=== PATIENT | male | born 1960 | race Hispanic/Latino ===

== ENCOUNTER 2017-12-20 18:09 | Inpatient (IN) | payer OTHER ==
--- NOTE | 2017-12-20 19:15 | ED PDOC ---
HPI: Chest Pain Time Seen by Provider: 12/20/17 18:15 Chief Complaint (Nursing): Chest Pain Chief Complaint (Provider): Chest Pain History Per: Patient History/Exam Limitations: no limitations Onset/Duration Of Symptoms: Hrs (x1 hour) Current Symptoms Are (Timing): Still Present Additional Complaint(s): 57 y/o male with past medical history of cardiac stent (6 years ago) presents to the ED with mid sternal chest pain that started in bus about an hour ago. Denies fever, chills, cough or any further medical complaints. Past Medical History Reviewed: Historical Data, Nursing Documentation, Vital Signs Vital Signs: Last Vital Signs Temp 97.8 F 12/22/17 07:40 Pulse 75 12/22/17 07:40 Resp 18 12/22/17 07:40 BP 148/88 12/22/17 07:40 Pulse Ox 97 12/22/17 07:40 - Medical History PMH: HTN, Hyperlipidemia - Surgical History Surgical History: Coronary Stent - Family History Family History: States: Unknown Family Hx - Social History Current smoker - smoking cessation education provided: Yes (Heavy smoker> 10 cigarettes daily) Alcohol: None Drugs: Denies - Home Medications Home Medications: Ambulatory Orders Medication Instructions Recorded Aspirin [Ecotrin] 81 mg PO DAILY 12/20/17 Losartan Potassium [Cozaar] 100 mg PO DAILY 12/20/17 Metoprolol [Lopressor] 5 mg PO DAILY 12/20/17 Prasugrel Hydrochloride [Effient] 5 mg PO DAILY 12/20/17 amLODIPine [Norvasc] 5 mg PO DAILY 12/20/17 - Allergies Allergies/Adverse Reactions: Allergies Allergy/AdvReac Type Severity Reaction Status Date / Time No Known Allergies Allergy Verified 12/20/17 18:09 CESAR Risk Score for UA/NSTEMI - CESAR Risk Score Age > 64: NO 3 or more CAD Risk Factors: YES Known CAD (Stenosis greater than 50%): YES Aspirin use in past 7 days: NO Severe Angina: NO EKG ST changes greater than 0.5mm: NO Positive Cardiac Marker: NO CESAR Score: 2 Risk %: 8% Review of Systems ROS Statement: Except As Marked, All Systems Reviewed And Found Negative (As per HPI, otherwise negative) Constitutional: Negative for: Fever, Chills Cardiovascular: Positive for: Chest Pain (Mid sternal) Respiratory: Negative for: Cough Physical Exam - Reviewed Nursing Documentation Reviewed: Yes Vital Signs Reviewed: Yes - Physical Exam Appears: Positive for: Non-toxic, No Acute Distress Head Exam: Positive for: ATRAUMATIC, NORMAL INSPECTION, NORMOCEPHALIC Skin: Positive for: Normal Color, Warm, Dry Eye Exam: Positive for: EOMI, Normal appearance, PERRL ENT: Positive for: Normal ENT Inspection Neck: Positive for: Normal, Painless ROM, Supple Cardiovascular/Chest: Positive for: Regular Rate, Rhythm. Negative for: Murmur Respiratory: Positive for: Normal Breath Sounds. Negative for: Accessory Muscle Use, Respiratory Distress Gastrointestinal/Abdominal: Positive for: Normal Exam, Soft. Negative for: Tenderness Back: Positive for: Normal Inspection Extremity: Positive for: Normal ROM. Negative for: Deformity Neurologic/Psych: Positive for: Alert, Oriented (x3) - Laboratory Results Result Diagrams: 12/21/17 04:20 12/21/17 04:20 - ECG O2 Sat by Pulse Oximetry: 100 (RA) Pulse Ox Interpretation: Normal Medical Decision Making Medical Decision Making: Time: 18:58 Initial Impression: Chest pain rule out CAD Plan: CMP Troponin I CBC w/ differential PTT Prothrombin time Chest x-ray pvc monitor Reevaluation --Patient will be admitted to in house doctor --Patient will be admitted to Dr. Cleaning- he is aware pt got ASA en route and has no pain at this time. Scribe Attestation: Documented by Jamaal Newby acting as a scribe for Surinder Honeycutt MD. MD Guillaumeibzeke Attestation: All medical record entries made by the Scribe were at my direction and personally dictated by me. I have reviewed the chart and agree that the record accurately reflects my personal performance of the history, physical exam, medical decision making, and the department course for this patient. I have also personally directed, reviewed, and agree with the discharge instructions and disposition. Disposition - Clinical Impression Clinical Impression: Chest pain - Patient ED Disposition Is Patient to be Admitted: Yes - Disposition Disposition Time: 20:20 Condition: STABLE
[2017-12-20 19:36] LABS: BASO % 0.7 % (0.0-2.0); EOS # 0.1 K/uL (0.0-0.7); HEMOGLOBIN 13.8 g/dL (12.0-18.0); LYMPH # 1.1 K/uL (1.0-4.3); LYMPH % 17.9 % (20.0-40.0); MEAN CELL VOLUME 92.4 fl (80.0-94.0); MEAN CORPUSCULAR HEMOGLOBIN 31.4 pg (27.0-31.0); MEAN PLATELET VOLUME 6.9 fl (7.2-11.7); MONO # 0.6 K/uL (0.0-0.8); MONO % 9.7 % (0.0-10.0); NEUT # 4.2 K/uL (1.8-7.0); NEUT % 69.7 % (50.0-75.0); NRBC % 0.1 % (0.0-0.0); RBC 4.4 Mil/uL (4.40-5.90); RED CELL DISTRIBUTION WIDTH 12.7 % (11.5-14.5)
[2017-12-20 19:42] LABS: INR 0.9 (0.9-1.2); PARTIAL THROMBOPLASTIN TIME 32.2 Seconds (25.6-37.1); PROTHROMBIN TIME 10.2 Seconds (9.8-13.1)
[2017-12-20 19:43] LABS: ALB/GLOB RATIO 1.3 (1.0-2.1); ALBUMIN 4.4 g/dL (3.5-5.0); ALT/SGPT 41 U/L (21-72); AST/SGOT 26 U/L (17-59); BLOOD UREA NITROGEN 13 mg/dl (9-20); CALCIUM 9.6 mg/dL (8.4-10.2); GFR AFRICAN-AMERICAN > 60; GFR NON-AFRICAN AMERICAN > 60
[2017-12-21 05:42] LABS: HEMOGLOBIN 13.5 g/dL (12.0-18.0); MEAN CELL VOLUME 91.6 fl (80.0-94.0); MEAN CORPUSCULAR HEMOGLOBIN 31.3 pg (27.0-31.0); MEAN CORPUSCULAR HGB CONC 34.1 g/dL (33.0-37.0); RBC 4.31 Mil/uL (4.40-5.90); RED CELL DISTRIBUTION WIDTH 12.7 % (11.5-14.5); WHITE BLOOD COUNT 5.5 K/uL (4.8-10.8)
[2017-12-21] MEDS ORDERED: Pneumococcal 23-Valent Vaccine IM ONE (06:00)
[2017-12-21 06:05] LABS: ALB/GLOB RATIO 1.3 (1.0-2.1); ALBUMIN 3.8 g/dL (3.5-5.0); ALT/SGPT 38 U/L (21-72); AST/SGOT 37 U/L (17-59); BLOOD UREA NITROGEN 13 mg/dl (9-20); CALCIUM 9.5 mg/dL (8.4-10.2); GFR AFRICAN-AMERICAN > 60; GFR NON-AFRICAN AMERICAN > 60; HDL CHOLESTEROL 36 MG/DL (30-70); URIC ACID 4.6 mg/Dl (3.5-8.5)
[2017-12-21 06:06] LABS: LDL CHOLESTEROL 169 mg/dL (0-129)
--- NOTE | 2017-12-21 08:27 | RAD ---
HISTORY: chest pain COMPARISON: No prior. FINDINGS: LUNGS: No active pulmonary disease. PLEURA: No significant pleural effusion identified, no pneumothorax apparent. CARDIOVASCULAR: Coronary artery stents are suggested with technical magnification enlarging the heart versus potential limited cardiomegaly. No pulmonary vascular derangement appreciable. OSSEOUS STRUCTURES: No significant abnormalities. VISUALIZED UPPER ABDOMEN: Normal. OTHER FINDINGS: None. IMPRESSION: No acute pulmonary disease. Questionable cardiomegaly. No pulmonary vascular derangement.
[2017-12-21] MEDS: Enoxaparin 40 mg Syringe SC SCH (08:55)
[2017-12-21] MEDS: Pantoprazole 40 mg EC Tab PO SCH (08:56)
[2017-12-21] MEDS ORDERED: PRASUGREL HYDROCHLORIDE PO SCH (09:00)
--- NOTE | 2017-12-21 09:17 | CARD ---
APPROVED REPORT EKG Measurement Heart [id number] ID [id number] <Conclusion> Normal sinus rhythm Inferior infarct, age undetermined Abnormal ECG
--- NOTE | 2017-12-21 12:21 | CARD ---
APPROVED REPORT EKG Measurement Heart [id number] MT [id number] <Conclusion> Normal sinus rhythm Possible Left atrial enlargement Borderline ECG
--- NOTE | 2017-12-21 13:58 | CARD ---
APPROVED REPORT EXAM: Two-dimensional and M-mode echocardiogram with Doppler and color Doppler. Other Information Quality : GoodRhythm : NSR INDICATION Chest Pain Surgery/Intervention Status/Post Intervention: Stent 2D DIMENSIONS IVSd1.30 (0.7-1.1cm)LVDd3.59 (3.9-5.9cm) LVOT Diameter1.94 (1.8-2.4cm)PWd1.28 (0.7-1.1cm) IVSs1.22 (0.8-1.2cm)LVDs2.62 (2.5-4.0cm) FS (%) 26.9 %PWs1.21 (0.8-1.2cm) M-Mode DIMENSIONS Left Atrium (MM)3.53 (2.5-4.0cm)IVSd1.12 (0.7-1.1cm) Aortic Root3.38 (2.2-3.7cm)LVDd4.38 (4.0-5.6cm) Aortic Cusp Exc.1.91 (1.5-2.0cm)PWd1.09 (0.7-1.1cm) IVSs1.47 cmFS (%) 52 % LVDs2.09 (2.0-3.8cm)PWs1.56 cm Mitral Valve MV E Tovgaprq35.6cm/sMV DECEL [id number] A Okjmrvbc19.1cm/s MV [id number]/A ratio1.1MVA (PHT)4.02cm2 TDI Lateral E' Peak V12.06cm/sMedial E' Peak V8.80cm/sE/Lateral E'7.7 E/Medial E'10.5 Pulmonary Valve PV Peak Nyuebuab07.0cm/s LEFT VENTRICLE The left ventricle is normal size. There is normal left ventricular wall thickness. Left ventricle systolic function is normal. The Ejection Fraction is 60-65%. There is normal LV segmental wall motion. Transmitral Doppler flow pattern is Grade I-abnormal relaxation pattern. RIGHT VENTRICLE The right ventricle is normal size. There is normal right ventricular wall thickness. The right ventricular systolic function is normal. ATRIA The left atrium size is normal. The right atrium size is normal. AORTIC VALVE The aortic valve is normal in structure. No aortic regurgitation is present. There is no aortic valvular stenosis. MITRAL VALVE The mitral valve is normal in structure. There is no evidence of mitral valve prolapse. There is no mitral valve stenosis. There is no mitral valve regurgitation noted. TRICUSPID VALVE The tricuspid valve is normal in structure. There is no tricuspid valve regurgitation noted. PULMONIC VALVE The pulmonary valve is normal in structure. There is no pulmonic valvular regurgitation. GREAT VESSELS The aortic root is normal in size. The IVC is normal in size and collapses >50% with inspiration. PERICARDIAL EFFUSION The pericardium appears normal. <Conclusion> The left ventricle is normal size. There is normal left ventricular wall thickness. There is normal LV segmental wall motion. Left ventricle systolic function is normal. The Ejection Fraction is 60-65%. Transmitral Doppler flow pattern is Grade I-abnormal relaxation pattern.
--- NOTE | 2017-12-21 14:01 | CP.PCM.HP ---
<Gael Garcia - Last Filed: 12/21/17 13:54> History of Present Illness - History of Present Illness History of Present Illness: CC: chest pain HPI: 57 y/o man w/ pmh of CAD s/p cardiac x6 stent (last was 6 years ago), HTN , DM2, HLD presents to the ED with mid sternal chest pain. Patient reports mid- sternal chest pain that started while he was in the bus yesterday morning. Patient reports sharp, non-radiating pain. The patient reports he has had stents placed multiple times with the most recent being 6 years ago. The patient denies fever, chills, cough, headaches, dizziness, SOB, abdominal pain, nasuea, vomiting, diarrhea, or dysuria. PMD: none PMH: CAD s/p cardiac x6 stent (last was 6 years ago), HTN, DM2, HLD meds: see med list PSH: left knee surgery Fam: denies SOC: current smoker, denies alcohol and illegal drugs ROS: 12 points assessed an negative unless otherwise reported in HPI Present on Admission - Present on Admission Any Indicators Present on Admission: Yes History of DVT/PE: No History of Uncontrolled Diabetes: Yes Urinary Catheter: No Decubitus Ulcer Present: No Review of Systems - Review of Systems All systems: reviewed and no additional remarkable complaints except - Constitutional Constitutional: absent: Chills, Fever - EENT Eyes: absent: Change in Vision - Cardiovascular Cardiovascular: As Per HPI, Chest Pain. absent: Leg Edema, Lightheadedness, Palpitations - Respiratory Respiratory: absent: Cough, Dyspnea - Gastrointestinal Gastrointestinal: absent: Abdominal Pain, Diarrhea, Nausea, Vomiting - Genitourinary Genitourinary: absent: Dysuria - Integumentary Integumentary: absent: Rash - Neurological Neurological: absent: Dizziness, Headaches Past Patient History - Past Medical History & Family History Past Medical History?: Yes - Past Social History Smoking Status: Former Smoker - CARDIAC Hx Cardiac Disorders: Yes - ENDOCRINE/METABOLIC Hx Endocrine Disorders: Yes - MUSCULOSKELETAL/RHEUMATOLOGICAL Hx Falls: No - PSYCHIATRIC Hx Substance Use: No - SURGICAL HISTORY Hx Coronary Stent: Yes - ANESTHESIA Hx Anesthesia: Yes Hx Anesthesia Reactions: No Meds Allergies/Adverse Reactions: Allergies Allergy/AdvReac Type Severity Reaction Status Date / Time No Known Allergies Allergy Verified 12/20/17 18:09 Physical Exam - Constitutional Appears: Non-toxic, No Acute Distress - Head Exam Head Exam: ATRAUMATIC, NORMAL INSPECTION, NORMOCEPHALIC - Eye Exam Eye Exam: Normal appearance - ENT Exam ENT Exam: Mucous Membranes Moist - Neck Exam Neck exam: Positive for: Full Rom. Negative for: Tenderness - Respiratory Exam Respiratory Exam: Clear to Auscultation Bilateral. absent: Accessory Muscle Use , Decreased Breath Sounds, Rales, Rhonchi, Wheezes, Respiratory Distress - Cardiovascular Exam Cardiovascular Exam: REGULAR RHYTHM. absent: Tachycardia - GI/Abdominal Exam GI & Abdominal Exam: Normal Bowel Sounds, Soft. absent: Distended, Tenderness - Extremities Exam Extremities exam: Negative for: calf tenderness, pedal edema, tenderness - Neurological Exam Neurological exam: Alert, Oriented x3 - Skin Skin Exam: Dry, Intact, Normal Color, Warm Results - Vital Signs Recent Vital Signs: Last Vital Signs Temp 98.5 F 12/21/17 11:59 Pulse 82 12/21/17 11:59 Resp 18 12/21/17 11:59 BP 130/86 12/21/17 11:59 Pulse Ox 98 12/21/17 11:59 - Labs Result Diagrams: 12/21/17 04:20 12/21/17 04:20 Labs: Laboratory Results - last 24 hr 12/20/17 12/20/17 12/20/17 19:25 19:25 19:25 WBC 6.0 RBC 4.40 Hgb 13.8 Hct 40.6 MCV 92.4 MCH 31.4 H MCHC 34.0 RDW 12.7 Plt Count 211 MPV 6.9 L Neut % (Auto) 69.7 Lymph % (Auto) 17.9 L [place] % (Auto) 9.7 Eos % (Auto) 2.0 Baso % (Auto) 0.7 Neut # (Auto) 4.2 Lymph # (Auto) 1.1 [place] # (Auto) 0.6 Eos # (Auto) 0.1 Baso # (Auto) 0.0 PT 10.2 INR 0.9 APTT 32.2 Sodium 138 Potassium 4.0 Chloride 97 L Carbon Dioxide 24 Anion Gap 21 H BUN 13 Creatinine 0.7 L Est GFR ( Amer) > 60 Est GFR (Non-Af Amer) > 60 POC Glucose (mg/dL) Random Glucose 260 H Hemoglobin A1c Uric Acid Calcium 9.6 Total Bilirubin 0.5 AST 26 ALT 41 Alkaline Phosphatase 87 Troponin I < 0.0120 Total Protein 7.6 Albumin 4.4 Globulin 3.3 Albumin/Globulin Ratio 1.3 Triglycerides Cholesterol LDL Cholesterol Direct HDL Cholesterol TSH 3rd Generation 12/21/17 12/21/17 12/21/17 00:55 04:20 04:20 WBC 5.5 RBC 4.31 L Hgb 13.5 Hct 39.5 MCV 91.6 MCH 31.3 H MCHC 34.1 RDW 12.7 Plt Count 201 MPV Neut % (Auto) Lymph % (Auto) [place] % (Auto) Eos % (Auto) Baso % (Auto) Neut # (Auto) Lymph # (Auto) [place] # (Auto) Eos # (Auto) Baso # (Auto) PT INR APTT Sodium 142 Potassium 4.0 Chloride 101 Carbon Dioxide 27 Anion Gap 18 BUN 13 Creatinine 0.7 L Est GFR ( Amer) > 60 Est GFR (Non-Af Amer) > 60 POC Glucose (mg/dL) Random Glucose 224 H Hemoglobin A1c Uric Acid 4.6 Calcium 9.5 Total Bilirubin 0.5 AST 37 ALT 38 Alkaline Phosphatase 75 Troponin I < 0.0120 Total Protein 6.7 Albumin 3.8 Globulin 2.9 Albumin/Globulin Ratio 1.3 Triglycerides 336 H Cholesterol 254 H LDL Cholesterol Direct 169 H HDL Cholesterol 36 TSH 3rd Generation 1.96 12/21/17 12/21/17 12/21/17 04:20 05:17 07:51 WBC RBC Hgb Hct MCV MCH MCHC RDW Plt Count MPV Neut % (Auto) Lymph % (Auto) [place] % (Auto) Eos % (Auto) Baso % (Auto) Neut # (Auto) Lymph # (Auto) [place] # (Auto) Eos # (Auto) Baso # (Auto) PT INR APTT Sodium Potassium Chloride Carbon Dioxide Anion Gap BUN Creatinine Est GFR ( Amer) Est GFR (Non-Af Amer) POC Glucose (mg/dL) 204 H Random Glucose Hemoglobin A1c 11.1 H Uric Acid Calcium Total Bilirubin AST ALT Alkaline Phosphatase Troponin I < 0.0120 Total Protein Albumin Globulin Albumin/Globulin Ratio Triglycerides Cholesterol LDL Cholesterol Direct HDL Cholesterol TSH 3rd Generation 12/21/17 10:28 WBC RBC Hgb Hct MCV MCH MCHC RDW Plt Count MPV Neut % (Auto) Lymph % (Auto) [place] % (Auto) Eos % (Auto) Baso % (Auto) Neut # (Auto) Lymph # (Auto) [place] # (Auto) Eos # (Auto) Baso # (Auto) PT INR APTT Sodium Potassium Chloride Carbon Dioxide Anion Gap BUN Creatinine Est GFR ( Amer) Est GFR (Non-Af Amer) POC Glucose (mg/dL) 321 H Random Glucose Hemoglobin A1c Uric Acid Calcium Total Bilirubin AST ALT Alkaline Phosphatase Troponin I Total Protein Albumin Globulin Albumin/Globulin Ratio Triglycerides Cholesterol LDL Cholesterol Direct HDL Cholesterol TSH 3rd Generation Assessment & Plan (1) Chest pain Status: Acute (2) Hx of heart artery stent Status: Chronic (3) Uncontrolled diabetes mellitus Status: Chronic (4) HTN (hypertension) Status: Chronic Comment: controlled w/ medication (5) Hyperlipidemia Status: Chronic - Assessment and Plan (Free Text) Plan: c/w present management c/w home medications cardiology consult ordered troponin negative x3 EKG: NSR, old inferior wall infarct, no acute ST elevation/depression echo: EF 60-65%, normal LV wall motion, thickness, and function CXR: no active pulmonary disease, questionable cardiomegaly aspirin 325 mg PO daily ezetimibe 10 mg PO daily metformin 1000 mg PO BID metoprolol succinate 50 mg PO daily januvia 100 mg PO daily brilinta 90 mg PO BID insulin correction scale hypoglycemic protocol prophylaxis: DVT lovenox 40 mg SC daily, GI protonix 40 mg PO daily monitor for acute changes - Date & Time Date: 12/20/17 Time: 23:00 <Lyle Cleaning - Last Filed: 12/22/17 21:52> Results - Vital Signs Recent Vital Signs: Last Vital Signs Temp 98.0 F 12/22/17 11:48 Pulse 69 12/22/17 12:03 Resp 18 12/22/17 11:48 BP 160/92 H 12/22/17 12:03 Pulse Ox 96 12/22/17 11:48 - Labs Result Diagrams: 12/21/17 04:20 12/21/17 04:20 Labs: Laboratory Results - last 24 hr 12/22/17 12/22/17 05:02 11:17 POC Glucose (mg/dL) 226 H 373 H Assessment & Plan - Assessment and Plan (Free Text) Plan: I was present during evaluation and discussed with Dr Garcia re plans of care and mgt. Lyle Cleaning M.D.
[2017-12-21] MEDS ORDERED: Glucagon Recombinant 1 mg Inj IM PRN (14:05)
[2017-12-21] MEDS ORDERED: Dextrose 50% SYRINGE Inj (50 ml) IV PRN (14:05)
[2017-12-21] MEDS: Metoprolol Succinate 50 mg XL Tab PO SCH (15:00)
[2017-12-21] MEDS: Insulin Lispro (humaLOG) 100 Units/ml Inj SC SCH ×2 (16:39→22:00)
--- NOTE | 2017-12-21 18:55 | CP.PCM.CON ---
History of Present Illness - History of Present Illness History of Present Illness: consultation for evaluation of chest pain HPI: Woody Arenas is a 57-year-old male with past medical history significant for CAD status post PTCA stenting 6 last episode of stenting was about 6 years ago hypertension diabetes mellitus dyslipidemia [place] patient [place] was [place] home when he started having palpitations with mild epigastric discomfort. Patient described the symptoms as a pressure-like sensation and because of his prior significant CAD got concerned and called the EMS. EKG on initial presentation was somewhat nonspecific and cardiac enzymes were negative. Past medical history as stated above significant for hypertension diabetes hyperlipidemia CAD PTCA stenting 6 past surgical history significant for left knee surgery social history significant for half pack per day for the last 15 years denies history of alcohol or illicit drug use. Review of Systems - Review of Systems Systems not reviewed;Unavailable: Acuity of Condition - Constitutional Constitutional: As Per HPI - EENT Eyes: As Per HPI Ears: As Per HPI Nose/Mouth/Throat: As Per HPI - Cardiovascular Cardiovascular: As Per HPI, Chest Pain - Respiratory Respiratory: As Per HPI - Gastrointestinal Gastrointestinal: As Per HPI - Genitourinary Genitourinary: As Per HPI - Reproductive: Male Reproductive:Male: As Per HPI - Musculoskeletal Musculoskeletal: As Per HPI - Integumentary Integumentary: As Per HPI - Neurological Neurological: As Per HPI - Psychiatric Psychiatric: As Per HPI - Endocrine Endocrine: As Per HPI - Hematologic/Lymphatic Hematologic: As Per HPI Past Patient History - Past Medical History & Family History Past Medical History?: Yes - Past Social History Smoking Status: Former Smoker - CARDIAC Hx Cardiac Disorders: Yes - ENDOCRINE/METABOLIC Hx Endocrine Disorders: Yes - MUSCULOSKELETAL/RHEUMATOLOGICAL Hx Falls: No - PSYCHIATRIC Hx Substance Use: No - SURGICAL HISTORY Hx Coronary Stent: Yes - ANESTHESIA Hx Anesthesia: Yes Hx Anesthesia Reactions: No Meds Allergies/Adverse Reactions: Allergies Allergy/AdvReac Type Severity Reaction Status Date / Time No Known Allergies Allergy Verified 12/20/17 18:09 - Medications Medications: Current Medications Amlodipine Besylate (Norvasc) 5 mg PO DAILY [facility] Last Admin: 12/21/17 08:56 Dose: 5 mg Aspirin (Aspirin) 325 mg PO DAILY [facility] Last Admin: 12/21/17 08:56 Dose: 325 mg Dextrose (Dextrose 50% Inj) 0 ml IV STAT PRN; Protocol PRN Reason: Hypoglycemia Protocol Dextrose (Glutose 15) 0 gm PO ONCE PRN; Protocol PRN Reason: Hypoglycemia Protocol Ezetimibe (Zetia) 10 mg PO DAILY [facility] Last Admin: 12/21/17 12:00 Dose: 10 mg Enoxaparin Sodium (Lovenox) 40 mg SC DAILY [facility] PRN Reason: Protocol Last Admin: 12/21/17 08:55 Dose: 40 mg Glucagon (Glucagen Diagnostic Kit) 0 mg IM STAT PRN; Protocol PRN Reason: Hypoglycemia Protocol Insulin Human Lispro (Humalog) 0 units SC ACHS [facility] PRN Reason: Protocol Last Admin: 12/21/17 16:39 Dose: 2 units Losartan Potassium (Cozaar) 100 mg PO DAILY [facility] Last Admin: 12/21/17 08:57 Dose: 100 mg Metformin HCl (Glucophage) 1,000 mg PO BIDWM [facility] Last Admin: 12/21/17 08:56 Dose: 1,000 mg Metoprolol Succinate (Toprol Xl) 50 mg PO DAILY [facility] Last Admin: 12/21/17 15:00 Dose: 50 mg Pantoprazole Sodium (Protonix Ec Tab) 40 mg PO DAILY [facility] Last Admin: 12/21/17 08:56 Dose: 40 mg Sitagliptin Phosphate (Januvia) 100 mg PO DAILY [facility] Last Admin: 12/21/17 08:56 Dose: 100 mg Ticagrelor (Brilinta) 90 mg PO BID [facility] Last Admin: 12/21/17 16:40 Dose: 90 mg Physical Exam - Constitutional Appears: Well - Head Exam Head Exam: ATRAUMATIC, NORMAL INSPECTION, NORMOCEPHALIC - Eye Exam Eye Exam: EOMI, Normal appearance, PERRL Pupil Exam: NORMAL ACCOMODATION, PERRL - ENT Exam ENT Exam: Mucous Membranes Moist, Normal Exam - Neck Exam Neck exam: Positive for: Normal Inspection - Respiratory Exam Respiratory Exam: Clear to Auscultation Bilateral, NORMAL BREATHING PATTERN - Cardiovascular Exam Cardiovascular Exam: REGULAR RHYTHM, RRR, +S1, +S2, Systolic Murmur - GI/Abdominal Exam GI & Abdominal Exam: Normal Bowel Sounds, Soft. absent: Tenderness - Extremities Exam Extremities exam: Positive for: normal inspection - Back Exam Back exam: NORMAL INSPECTION - Neurological Exam Neurological exam: Alert, CN II-XII Intact, Normal Gait, Oriented x3, Reflexes Normal - Psychiatric Exam Psychiatric exam: Normal Affect, Normal Mood - Skin Skin Exam: Dry, Intact, Normal Color, Warm Results - Vital Signs Recent Vital Signs: Last Vital Signs Temp 98.2 F 12/21/17 16:04 Pulse 84 12/21/17 16:04 Resp 20 12/21/17 16:04 BP 133/84 12/21/17 16:04 Pulse Ox 95 12/21/17 16:04 - Labs Result Diagrams: 12/21/17 04:20 12/21/17 04:20 Labs: Laboratory Results - last 24 hr 12/20/17 12/20/17 12/20/17 19:25 19:25 19:25 WBC 6.0 RBC 4.40 Hgb 13.8 Hct 40.6 MCV 92.4 MCH 31.4 H MCHC 34.0 RDW 12.7 Plt Count 211 MPV 6.9 L Neut % (Auto) 69.7 Lymph % (Auto) 17.9 L [place] % (Auto) 9.7 Eos % (Auto) 2.0 Baso % (Auto) 0.7 Neut # (Auto) 4.2 Lymph # (Auto) 1.1 [place] # (Auto) 0.6 Eos # (Auto) 0.1 Baso # (Auto) 0.0 PT 10.2 INR 0.9 APTT 32.2 Sodium 138 Potassium 4.0 Chloride 97 L Carbon Dioxide 24 Anion Gap 21 H BUN 13 Creatinine 0.7 L Est GFR ( Amer) > 60 Est GFR (Non-Af Amer) > 60 POC Glucose (mg/dL) Random Glucose 260 H Hemoglobin A1c Uric Acid Calcium 9.6 Total Bilirubin 0.5 AST 26 ALT 41 Alkaline Phosphatase 87 Troponin I < 0.0120 Total Protein 7.6 Albumin 4.4 Globulin 3.3 Albumin/Globulin Ratio 1.3 Triglycerides Cholesterol LDL Cholesterol Direct HDL Cholesterol TSH 3rd Generation 12/21/17 12/21/17 12/21/17 00:55 04:20 04:20 WBC 5.5 RBC 4.31 L Hgb 13.5 Hct 39.5 MCV 91.6 MCH 31.3 H MCHC 34.1 RDW 12.7 Plt Count 201 MPV Neut % (Auto) Lymph % (Auto) [place] % (Auto) Eos % (Auto) Baso % (Auto) Neut # (Auto) Lymph # (Auto) [place] # (Auto) Eos # (Auto) Baso # (Auto) PT INR APTT Sodium 142 Potassium 4.0 Chloride 101 Carbon Dioxide 27 Anion Gap 18 BUN 13 Creatinine 0.7 L Est GFR ( Amer) > 60 Est GFR (Non-Af Amer) > 60 POC Glucose (mg/dL) Random Glucose 224 H Hemoglobin A1c Uric Acid 4.6 Calcium 9.5 Total Bilirubin 0.5 AST 37 ALT 38 Alkaline Phosphatase 75 Troponin I < 0.0120 Total Protein 6.7 Albumin 3.8 Globulin 2.9 Albumin/Globulin Ratio 1.3 Triglycerides 336 H Cholesterol 254 H LDL Cholesterol Direct 169 H HDL Cholesterol 36 TSH 3rd Generation 1.96 12/21/17 12/21/17 12/21/17 04:20 05:17 07:51 WBC RBC Hgb Hct MCV MCH MCHC RDW Plt Count MPV Neut % (Auto) Lymph % (Auto) [place] % (Auto) Eos % (Auto) Baso % (Auto) Neut # (Auto) Lymph # (Auto) [place] # (Auto) Eos # (Auto) Baso # (Auto) PT INR APTT Sodium Potassium Chloride Carbon Dioxide Anion Gap BUN Creatinine Est GFR ( Amer) Est GFR (Non-Af Amer) POC Glucose (mg/dL) 204 H Random Glucose Hemoglobin A1c 11.1 H Uric Acid Calcium Total Bilirubin AST ALT Alkaline Phosphatase Troponin I < 0.0120 Total Protein Albumin Globulin Albumin/Globulin Ratio Triglycerides Cholesterol LDL Cholesterol Direct HDL Cholesterol TSH 3rd Generation 12/21/17 10:28 WBC RBC Hgb Hct MCV MCH MCHC RDW Plt Count MPV Neut % (Auto) Lymph % (Auto) [place] % (Auto) Eos % (Auto) Baso % (Auto) Neut # (Auto) Lymph # (Auto) [place] # (Auto) Eos # (Auto) Baso # (Auto) PT INR APTT Sodium Potassium Chloride Carbon Dioxide Anion Gap BUN Creatinine Est GFR ( Amer) Est GFR (Non-Af Amer) POC Glucose (mg/dL) 321 H Random Glucose Hemoglobin A1c Uric Acid Calcium Total Bilirubin AST ALT Alkaline Phosphatase Troponin I Total Protein Albumin Globulin Albumin/Globulin Ratio Triglycerides Cholesterol LDL Cholesterol Direct HDL Cholesterol TSH 3rd Generation Assessment & Plan (1) Chest pain Assessment and Plan: plan for stress test in am NPO p mn cont dapt ( chg effient to brilinta for now ) bb, statins Status: Acute (2) HTN (hypertension) Assessment and Plan: cont norvasc, losartan Status: Chronic (3) Hx of heart artery stent Status: Chronic (4) Hyperlipidemia Assessment and Plan: zetia intolerant to statins Status: Chronic
[2017-12-22 04:44] VITALS: RESP 18
[2017-12-22] MEDS: Insulin Lispro (humaLOG) 100 Units/ml Inj SC SCH ×3 (08:15→17:52)
[2017-12-22] MEDS: Pantoprazole 40 mg EC Tab PO SCH (11:32)
[2017-12-22] MEDS: Enoxaparin 40 mg Syringe SC SCH (11:35)
[2017-12-22] MEDS: Metoprolol Succinate 50 mg XL Tab PO SCH (11:46)
[2017-12-22 11:48] VITALS: BP 160/92; PULSE 69; TEMP 98; O2SAT 96
--- NOTE | 2017-12-22 14:06 | CP.PCM.PN ---
<Gael Garcia - Last Filed: 12/22/17 14:04> Subjective - Date & Time of Evaluation Date of Evaluation: 12/22/17 Time of Evaluation: 11:00 - Subjective Subjective: Patient seen and examined this morning at bedside. Ther eare no acute events overnight. Patient denies chest pain. 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 Patient is s/p stress test this morning. Patient to have cath this afternoon. Objective - Vital Signs/Intake and Output Vital Signs (last 24 hours): Temp Pulse Resp BP Pulse Ox 98.0 F 69 18 160/92 H 96 12/22/17 11:48 12/22/17 12:03 12/22/17 11:48 12/22/17 12:03 12/22/17 11:48 - Medications Medications: Current Medications Amlodipine Besylate (Norvasc) 5 mg PO DAILY [facility] Last Admin: 12/22/17 11:46 Dose: 5 mg Aspirin (Aspirin) 325 mg PO DAILY [facility] Last Admin: 12/22/17 11:32 Dose: 325 mg Dextrose (Dextrose 50% Inj) 0 ml IV STAT PRN; Protocol PRN Reason: Hypoglycemia Protocol Dextrose (Glutose 15) 0 gm PO ONCE PRN; Protocol PRN Reason: Hypoglycemia Protocol Ezetimibe (Zetia) 10 mg PO DAILY [facility] Last Admin: 12/22/17 11:47 Dose: Not Given Enoxaparin Sodium (Lovenox) 40 mg SC DAILY [facility] PRN Reason: Protocol Last Admin: 12/22/17 11:35 Dose: Not Given Glipizide (Glucotrol Xl) 5 mg PO BID [facility] Glucagon (Glucagen Diagnostic Kit) 0 mg IM STAT PRN; Protocol PRN Reason: Hypoglycemia Protocol Insulin Human Lispro (Humalog) 0 units SC [facility] PRN Reason: Protocol Last Admin: 12/22/17 11:31 Dose: 8 units Losartan Potassium (Cozaar) 100 mg PO DAILY [facility] Last Admin: 12/22/17 12:03 Dose: Not Given Metformin HCl (Glucophage) 1,000 mg PO BIDWM [facility] Last Admin: 12/22/17 08:15 Dose: Not Given Metoprolol Succinate (Toprol Xl) 50 mg PO DAILY [facility] Last Admin: 12/22/17 11:46 Dose: 50 mg Pantoprazole Sodium (Protonix Ec Tab) 40 mg PO DAILY [facility] Last Admin: 12/22/17 11:32 Dose: 40 mg Sitagliptin Phosphate (Januvia) 100 mg PO DAILY [facility] Last Admin: 12/22/17 11:35 Dose: Not Given Ticagrelor (Brilinta) 90 mg PO BID [facility] Last Admin: 12/22/17 11:38 Dose: 90 mg - Labs Labs: 12/21/17 04:20 12/21/17 04:20 PT 10.2 Seconds (9.8-13.1) 12/20/17 19:25 INR 0.9 (0.9-1.2) 12/20/17 19:25 APTT 32.2 Seconds (25.6-37.1) 12/20/17 19:25 - Constitutional Appears: Non-toxic, No Acute Distress - Head Exam Head Exam: ATRAUMATIC, NORMAL INSPECTION, NORMOCEPHALIC - Eye Exam Eye Exam: Normal appearance - ENT Exam ENT Exam: Mucous Membranes Moist - Neck Exam Neck Exam: Full ROM. absent: Tenderness - Respiratory Exam Respiratory Exam: Clear to Ausculation Bilateral. absent: Accessory Muscle Use , Decreased Breath Sounds, Rales, Rhonchi, Wheezes, Respiratory Distress - Cardiovascular Exam Cardiovascular Exam: REGULAR RHYTHM. absent: Tachycardia - GI/Abdominal Exam GI & Abdominal Exam: Soft, Normal Bowel Sounds. absent: Distended, Tenderness - Extremities Exam Extremities Exam: absent: Calf Tenderness, Pedal Edema, Tenderness - Neurological Exam Neurological Exam: Alert, Awake, Oriented x3 - Skin Skin Exam: Dry, Intact, Normal Color, Warm Assessment and Plan (1) Chest pain Status: Acute (2) Hx of heart artery stent Status: Chronic (3) Uncontrolled diabetes mellitus Status: Chronic (4) HTN (hypertension) Status: Chronic (5) Hyperlipidemia Status: Chronic - Assessment and Plan (Free Text) Plan: c/w present management c/w home medications cardiology recommendations appreciated troponin negative x3 EKG: NSR, old inferior wall infarct, no acute ST elevation/depression echo: EF 60-65%, normal LV wall motion, thickness, and function CXR: no active pulmonary disease, questionable cardiomegaly aspirin 325 mg PO daily ezetimibe 10 mg PO daily metformin 1000 mg PO BID metoprolol succinate 50 mg PO daily januvia 100 mg PO daily brilinta 90 mg PO BID insulin correction scale hypoglycemic protocol s/p stress test, found to have R on T waves patient NPO for cath this afternoon at [place] prophylaxis: DVT lovenox 40 mg SC daily, GI protonix 40 mg PO daily monitor for acute changes <Lyle Cleaning - Last Filed: 12/22/17 21:57> Objective - Vital Signs/Intake and Output Vital Signs (last 24 hours): Temp Pulse Resp BP Pulse Ox 98.0 F 69 18 160/92 H 96 12/22/17 11:48 12/22/17 12:03 12/22/17 11:48 12/22/17 12:03 12/22/17 11:48 - Medications Medications: Current Medications Amlodipine Besylate (Norvasc) 5 mg PO DAILY [facility] Last Admin: 12/22/17 11:46 Dose: 5 mg Aspirin (Aspirin) 325 mg PO DAILY [facility] Last Admin: 12/22/17 11:32 Dose: 325 mg Dextrose (Dextrose 50% Inj) 0 ml IV STAT PRN; Protocol PRN Reason: Hypoglycemia Protocol Dextrose (Glutose 15) 0 gm PO ONCE PRN; Protocol PRN Reason: Hypoglycemia Protocol Ezetimibe (Zetia) 10 mg PO DAILY [facility] Last Admin: 12/22/17 11:47 Dose: Not Given Glipizide (Glucotrol Xl) 5 mg PO BID [facility] Last Admin: 12/22/17 17:52 Dose: Not Given Glucagon (Glucagen Diagnostic Kit) 0 mg IM STAT PRN; Protocol PRN Reason: Hypoglycemia Protocol Nitroglycerin/Dextrose (Nitroglycerin 50 Mg/250 Ml D5w) 50 mg in 250 mls @ 6 mls/hr IV .Q24H ONE; 20 MCG/MIN PRN Reason: Protocol Stop: 12/23/17 15:16 Last Admin: 12/22/17 17:53 Dose: Not Given Heparin Sodium/Dextrose (Heparin 25,000 Units/250ml In D5w) 25,000 units in 250 mls @ 8 mls/hr IV .Q24H [facility] PRN Reason: Protocol Insulin Human Lispro (Humalog) 0 units SC ACHS [facility] PRN Reason: Protocol Last Admin: 12/22/17 17:52 Dose: Not Given Losartan Potassium (Cozaar) 100 mg PO DAILY [facility] Last Admin: 12/22/17 12:03 Dose: Not Given Metoprolol Succinate (Toprol Xl) 50 mg PO DAILY [facility] Last Admin: 12/22/17 11:46 Dose: 50 mg Pantoprazole Sodium (Protonix Ec Tab) 40 mg PO DAILY [facility] Last Admin: 12/22/17 11:32 Dose: 40 mg Sitagliptin Phosphate (Januvia) 100 mg PO DAILY [facility] Last Admin: 12/22/17 11:35 Dose: Not Given - Labs Labs: 12/21/17 04:20 12/21/17 04:20 PT 10.2 Seconds (9.8-13.1) 12/20/17 19:25 INR 0.9 (0.9-1.2) 12/20/17 19:25 APTT 32.2 Seconds (25.6-37.1) 12/20/17 19:25 Assessment and Plan - Assessment and Plan (Free Text) Plan: Discussed with Dr Bret lopez results of cardiac cath, Noted diffused multivessel disease. He was advised CABG and will be transferred to [facility].
[2017-12-22] MEDS ORDERED: Nitroglycerin 50mg in D5W 50 MG/250 ML BOTTLE IV ONE (15:17)
[2017-12-22] MEDS ORDERED: Heparin 25,000units in D5W 25,000 UNITS/250 ML BAG IV SCH (15:30)
[2017-12-22] MEDS ORDERED: GlipiZIDE 5 mg SR Tab PO SCH (17:00)
--- NOTE | 2017-12-22 21:53 | CP.PCM.PN ---
Subjective - Date & Time of Evaluation Date of Evaluation: 12/22/17 Time of Evaluation: 11:00 - Subjective Subjective: stress test done in am shows anteroapical defect plan [place] [facility] [place] - Vital Signs/Intake and Output Vital Signs (last 24 hours): Temp Pulse Resp BP Pulse Ox 98.0 F 69 18 160/92 H 96 12/22/17 11:48 12/22/17 12:03 12/22/17 11:48 12/22/17 12:03 12/22/17 11:48 - Medications Medications: Current Medications Amlodipine Besylate (Norvasc) 5 mg PO DAILY [facility] Last Admin: 12/22/17 11:46 Dose: 5 mg Aspirin (Aspirin) 325 mg PO DAILY [facility] Last Admin: 12/22/17 11:32 Dose: 325 mg Dextrose (Dextrose 50% Inj) 0 ml IV STAT PRN; Protocol PRN Reason: Hypoglycemia Protocol Dextrose (Glutose 15) 0 gm PO ONCE PRN; Protocol PRN Reason: Hypoglycemia Protocol Ezetimibe (Zetia) 10 mg PO DAILY [facility] Last Admin: 12/22/17 11:47 Dose: Not Given Glipizide (Glucotrol Xl) 5 mg PO BID [facility] Last Admin: 12/22/17 17:52 Dose: Not Given Glucagon (Glucagen Diagnostic Kit) 0 mg IM STAT PRN; Protocol PRN Reason: Hypoglycemia Protocol Nitroglycerin/Dextrose (Nitroglycerin 50 Mg/250 Ml D5w) 50 mg in 250 mls @ 6 mls/hr IV .Q24H ONE; 20 MCG/MIN PRN Reason: Protocol Stop: 12/23/17 15:16 Last Admin: 12/22/17 17:53 Dose: Not Given Heparin Sodium/Dextrose (Heparin 25,000 Units/250ml In D5w) 25,000 units in 250 mls @ 8 mls/hr IV .Q24H [facility] PRN Reason: Protocol Insulin Human Lispro (Humalog) 0 units SC ACHS [facility] PRN Reason: Protocol Last Admin: 12/22/17 17:52 Dose: Not Given Losartan Potassium (Cozaar) 100 mg PO DAILY [facility] Last Admin: 12/22/17 12:03 Dose: Not Given Metoprolol Succinate (Toprol Xl) 50 mg PO DAILY [facility] Last Admin: 12/22/17 11:46 Dose: 50 mg Pantoprazole Sodium (Protonix Ec Tab) 40 mg PO DAILY [facility] Last Admin: 12/22/17 11:32 Dose: 40 mg Sitagliptin Phosphate (Januvia) 100 mg PO DAILY [facility] Last Admin: 12/22/17 11:35 Dose: Not Given - Labs Labs: 12/21/17 04:20 12/21/17 04:20 PT 10.2 Seconds (9.8-13.1) 12/20/17 19:25 INR 0.9 (0.9-1.2) 12/20/17 19:25 APTT 32.2 Seconds (25.6-37.1) 12/20/17 19:25 - Constitutional Appears: Well - Head Exam Head Exam: ATRAUMATIC, NORMAL INSPECTION, NORMOCEPHALIC - Eye Exam Eye Exam: EOMI, Normal appearance, PERRL Pupil Exam: NORMAL ACCOMODATION, PERRL - ENT Exam ENT Exam: Mucous Membranes Moist, Normal Exam - Neck Exam Neck Exam: Full ROM, Normal Inspection. absent: Lymphadenopathy - Respiratory Exam Respiratory Exam: Clear to Ausculation Bilateral, NORMAL BREATHING PATTERN - Cardiovascular Exam Cardiovascular Exam: REGULAR RHYTHM, +S1, +S2. absent: Murmur - GI/Abdominal Exam GI & Abdominal Exam: Soft, Normal Bowel Sounds. absent: Tenderness - Extremities Exam Extremities Exam: Full ROM, Normal Capillary Refill, Normal Inspection. absent : Joint Swelling, Pedal Edema - Back Exam Back Exam: NORMAL INSPECTION - Neurological Exam Neurological Exam: Alert, Awake, CN II-XII Intact, Normal Gait, Oriented x3 - Psychiatric Exam Psychiatric exam: Normal Affect, Normal Mood - Skin Skin Exam: Dry, Intact, Normal Color, Warm Assessment and Plan (1) Chest pain Assessment & Plan: plan for LHCx today [place] [facility] [place], bb GMDT for CAD Status: Acute (2) HTN (hypertension) Status: Chronic (3) Hx of heart artery stent Status: Chronic (4) Hyperlipidemia Status: Chronic
== END 2017-12-22 13:30 | disposition short-term general hospital (02) | DRG 303 ==
LOC: H.ER 18:09 → H.ERHOLD 20:55 → H.TEL 22:28 → OBSVTOIN 22:59
PROVIDERS: ADMIT Family Medicine; ATTEND Family Medicine
PROC: 3E0234Z Introduction of Serum, Toxoid and Vaccine into Muscle, Percutaneous Approach (ICD-10-PCS; principal; 2017-12-21)
DX: I25.119 Atherosclerotic heart disease of native coronary artery with unspecified angina pectoris (principal); I10 Essential (primary) hypertension; E11.65 Type 2 diabetes mellitus with hyperglycemia; E78.5 Hyperlipidemia, unspecified; F17.210 Nicotine dependence, cigarettes, uncomplicated; Z95.5 Presence of coronary angioplasty implant and graft; Z23 Encounter for immunization; Z79.82 Long term (current) use of aspirin; Z79.84 Long term (current) use of oral hypoglycemic drugs